=== PATIENT | female | born 1990 ===

== ENCOUNTER 2021-01-16 09:42 | Outpatient (CLI) | payer OTHER ==
[~2021-01-16 09:42] MED LIST: CIPRO500 MG PO; PYRIDIUM200 MG PO
== END 2021-01-16 11:03 | disposition home or self-care (01) ==
LOC: PRENATAL 09:42
PROVIDERS: ATTEND Obstetrics & Gynecology Maternal & Fetal Medicine
DX: O10.011 Pre-existing essential hypertension complicating pregnancy, first trimester (principal); O36.80X1 Pregnancy with inconclusive fetal viability, fetus 1; Z36.89 Encounter for other specified antenatal screening; Z3A.13 13 weeks gestation of pregnancy

== ENCOUNTER 2021-02-27 08:24 | Outpatient (CLI) | payer OTHER | END 2021-02-27 09:08 | disposition home or self-care (01) | LOC: PRENATAL 08:24 | PROVIDERS: ATTEND Obstetrics & Gynecology Maternal & Fetal Medicine | DX: O35.0XX1 Maternal care for (suspected) central nervous system malformation in fetus, fetus 1 (principal); O35.3XX1 Maternal care for (suspected) damage to fetus from viral disease in mother, fetus 1; O98.512 Other viral diseases complicating pregnancy, second trimester; O10.012 Pre-existing essential hypertension complicating pregnancy, second trimester; Z36.89 Encounter for other specified antenatal screening; Z3A.20 20 weeks gestation of pregnancy ==